=== PATIENT | male | born 1960 | race American Indian/Alaskan Native ===

== ENCOUNTER 2017-03-17 21:49 | Emergency (ER) | payer SELFPAY ==
[2017-03-17 23:37] LABS: Hemoglobin 14.4 gm/dl (11.8-15.2); Mean Corpuscular HGB Conc 33 % (32-34); Mean Corpuscular Hemoglobin 28 pg (28-32); Mean Corpuscular Volume 87 fl (84-94); Platelet Count 215 K/mm3 (140-440); Red Blood Count 5.08 M/mm3 (3.65-5.03); Red Cell Distribution Width 14.4 % (13.2-15.2); White Blood Count 8.5 K/mm3 (4.5-11.0)
[2017-03-17 23:42] LABS: Anion Gap 16 mmol/L; BUN/Creatinine Ratio 10; Blood Urea Nitrogen 10 mg/dL (9-20); Calcium 9.1 mg/dL (8.4-10.2); Carbon Dioxide 28 mmol/L (22-30); Chloride 98.2 mmol/L (98-107); Glucose 152 mg/dL (75-100); Potassium 4.1 mmol/L (3.6-5.0); Sodium 138 mmol/L (137-145)
[2017-03-18 00:08] LABS: Urine Drugs of Abuse Note Disclamer
[2017-03-18 00:41] LABS: Bilirubin,Urine NEG (Negative); Blood,Urine SM (Negative); Ketones,Urine NEG (Negative); Leukocyte Esterase,Urine MOD (Negative); Mucus,Urine FEW /HPF; Nitrite,Urine NEG (Negative); Protein,Urine <15 mg/dL mg/dL (Negative)
[2017-03-18 02:00] LABS: Basophils % (Manual) 0 % (0.0-1.8); Blastocytes % (Manual) 0 %
[2017-03-18 02:01] LABS: Diff Status Complete
--- NOTE | 2017-03-18 06:33 | Emergency Department Report ---
ED General Adult HPI - General Chief complaint: Medical Clearance Stated complaint: MEDICAL CLEARANCE Time Seen by Provider: 03/18/17 06:32 Source: patient, EMS (ems notes not available at time of chart dictation), RN notes reviewed Mode of arrival: Ambulatory Limitations: No Limitations - History of Present Illness Initial comments: This is a 56-year-old male who is previously unknown to this provider. He presents to the ER for medical clearance. Patient is using alcohol and crack. He wants medical clearance. He denies headache, neck pain, chest pain, abdominal pain, shortness of breath, testicular pain, irritative and obstructive urinary symptoms, he denies hallucinations, and he denies homicidality and suicidality. He was sent to the ER for medical clearance for low temperature and complaints of rapid heartbeat and chills. Last the patient about these aforementioned findings, he denies them. There is no documentation as far that the patient has been hypothermic, or having palpitations, and he does not have any grossly abnormal vital signs the ER. Severity scale (0 -10): 0 Improves with: none Worsens with: none Associated Symptoms: denies: confusion, chest pain, cough, diaphoresis, fever/ chills, headaches, loss of appetite, malaise, nausea/vomiting, rash, shortness of breath, syncope, weakness - Related Data Allergies Allergy/AdvReac Type Severity Reaction Status Date / Time No Known Allergies Allergy Unverified 03/17/17 22:15 ED Review of Systems ROS: Stated complaint: MEDICAL CLEARANCE Other details as noted in HPI Constitutional: denies: fever Eyes: denies: eye discharge ENT: denies: epistaxis Respiratory: denies: cough Cardiovascular: denies: chest pain Gastrointestinal: denies: abdominal pain Genitourinary: denies: dysuria, discharge, testicular pain Skin: denies: lesions Neurological: denies: weakness Psychiatric: denies: homicidal thoughts, suicidal thoughts ED Past Medical Hx - Past Medical History Previous Medical History?: Yes Hx Psychiatric Treatment: Yes (depression) - Social History Smoking Status: Current Every Day Smoker Substance Use Type: Alcohol, Cocaine ED Physical Exam - General Limitations: No Limitations General appearance: alert, in no apparent distress - Head Head exam: Present: atraumatic, normocephalic - Eye Eye exam: Present: normal appearance, PERRL, EOMI, other (visual acuity intact to finger counting, color perception, reading at a close distance). Absent: nystagmus - ENT ENT exam: Present: normal exam, normal orophraynx, mucous membranes moist, normal external ear exam - Neck Neck exam: Present: normal inspection, full ROM. Absent: tenderness, meningismus - Respiratory Respiratory exam: Present: normal lung sounds bilaterally. Absent: respiratory distress, chest wall tenderness - Cardiovascular Cardiovascular Exam: Present: regular rate, normal rhythm, normal heart sounds. Absent: bradycardia, tachycardia, irregular rhythm, systolic murmur, diastolic murmur, rubs, gallop - GI/Abdominal GI/Abdominal exam: Present: soft, normal bowel sounds. Absent: distended, tenderness, guarding, rebound, rigid, pulsatile mass - Rectal Rectal exam: Present: deferred - Extremities Exam Extremities exam: Present: normal inspection, full ROM, normal capillary refill. Absent: pedal edema, joint swelling, calf tenderness - Back Exam Back exam: Present: normal inspection, full ROM. Absent: tenderness, CVA tenderness (R), paraspinal tenderness, vertebral tenderness - Neurological Exam Neurological exam: Present: alert, oriented X3, normal gait, other (Extraocular movements intact. Tongue midline. No facial droop. Facial sensation intact to light touch in the V1, V2, V3 distribution bilaterally. 5 and 5 strength in 4 extremities.. Sensation is intact to light touch in 4 extremities.). Absent : motor sensory deficit - Psychiatric Psychiatric exam: Present: flat affect. Absent: homicidal ideation, suicidal ideation - Skin Skin exam: Present: warm, dry, intact, normal color. Absent: rash ED Course Vital Signs 03/17/17 03/18/17 03/18/17 22:19 03:00 03:15 Temperature 97.7 F Pulse Rate 76 80 80 Respiratory 20 19 16 Rate Blood Pressure 124/80 102/60 102/65 Blood Pressure [Right] O2 Sat by Pulse 97 Oximetry 03/18/17 03/18/17 03/18/17 03:30 03:45 04:00 Temperature Pulse Rate 79 81 76 Respiratory 14 15 14 Rate Blood Pressure 106/64 101/56 97/71 Blood Pressure [Right] O2 Sat by Pulse Oximetry 03/18/17 03/18/17 03/18/17 04:15 04:30 04:56 Temperature 98.3 F Pulse Rate 81 76 76 Respiratory 15 16 16 Rate Blood Pressure 103/62 110/75 Blood Pressure 116/74 [Right] O2 Sat by Pulse 96 Oximetry 03/18/17 03/18/17 03/18/17 05:01 06:17 07:01 Temperature Pulse Rate 67 70 73 Respiratory 15 14 15 Rate Blood Pressure 116/74 111/70 Blood Pressure 105/70 [Right] O2 Sat by Pulse 95 97 95 Oximetry 03/18/17 03/18/17 03/18/17 08:01 09:01 10:00 Temperature Pulse Rate 81 Respiratory 14 Rate Blood Pressure 100/62 98/71 111/70 Blood Pressure [Right] O2 Sat by Pulse 98 98 98 Oximetry 03/18/17 12:30 Temperature 97.7 F Pulse Rate 70 Respiratory 18 Rate Blood Pressure Blood Pressure 118/78 [Right] O2 Sat by Pulse 98 Oximetry - Reevaluation(s) Reevaluation #1: 03/18/17 08:02 Patient sleeping on a stretcher in no distress, awakes easily, and walks with a steady gait. Reevaluation #2: 03/18/17 08:25 Reassessment, patient no distress, remainder of laboratory studies unremarkable , he will be discharged. ED Medical Decision Making - Lab Data Result diagrams: 03/17/17 22:50 03/17/17 22:50 Vital Signs 03/17/17 03/18/17 03/18/17 22:19 03:00 03:15 Temperature 97.7 F Pulse Rate 76 80 80 Respiratory 20 19 16 Rate Blood Pressure 124/80 102/60 102/65 Blood Pressure [Right] O2 Sat by Pulse 97 Oximetry 03/18/17 03/18/17 03/18/17 03:30 03:45 04:00 Temperature Pulse Rate 79 81 76 Respiratory 14 15 14 Rate Blood Pressure 106/64 101/56 97/71 Blood Pressure [Right] O2 Sat by Pulse Oximetry 03/18/17 03/18/17 03/18/17 04:15 04:30 04:56 Temperature 98.3 F Pulse Rate 81 76 76 Respiratory 15 16 16 Rate Blood Pressure 103/62 110/75 Blood Pressure 116/74 [Right] O2 Sat by Pulse 96 Oximetry 03/18/17 03/18/17 05:01 06:17 Temperature Pulse Rate 67 70 Respiratory 15 14 Rate Blood Pressure 116/74 Blood Pressure 105/70 [Right] O2 Sat by Pulse 95 97 Oximetry Labs 03/17/17 03/17/17 03/17/17 22:50 22:50 22:50 WBC 8.5 RBC 5.08 H Hgb 14.4 Hct 44.0 MCV 87 MCH 28 MCHC 33 RDW 14.4 Plt Count 215 Baso % (Auto) [employer] Technician Add Manual Diff Complete Total Counted 100 Seg Neuts % (Manual) 67.0 Band Neutrophils % 1.0 Lymphocytes % (Manual) 27.0 Reactive Lymphs % (Man) 1.0 Monocytes % (Manual) 3.0 Eosinophils % (Manual) 1.0 Basophils % (Manual) 0 Metamyelocytes % 0 Myelocytes % 0 Promyelocytes % 0 Blast Cells % 0 Nucleated RBC % Not Reportable Seg Neutrophils # Man 5.7 Band Neutrophils # 0.1 Lymphocytes # (Manual) 2.3 Abs React Lymphs (Man) 0.1 Monocytes # (Manual) 0.3 Eosinophils # (Manual) 0.1 Basophils # (Manual) 0.0 Metamyelocytes # 0.0 Myelocytes # 0.0 Promyelocytes # 0.0 Blast Cells # 0.0 WBC Morphology Not Reportable Hypersegmented Neuts Not Reportable Hyposegmented Neuts Not Reportable Hypogranular Neuts Not Reportable Smudge Cells Not Reportable Toxic Granulation Not Reportable Toxic Vacuolation Not Reportable Dohle Bodies Not Reportable Pelger-Huet Anomaly Not Reportable Inés Rods Not Reportable Platelet Estimate Appears normal Clumped Platelets Not Reportable Plt Clumps, EDTA Not Reportable Large Platelets Not Reportable Giant Platelets Not Reportable Platelet Satelliting Not Reportable Plt Morphology Comment Not Reportable RBC Morphology Not Reportable Dimorphic RBCs Not Reportable Polychromasia Not Reportable Hypochromasia Not Reportable Poikilocytosis Not Reportable Anisocytosis Not Reportable Microcytosis Not Reportable Macrocytosis Not Reportable Spherocytes Not Reportable Pappenheimer Bodies Not Reportable Sickle Cells Not Reportable Target Cells Not Reportable Tear Drop Cells Not Reportable Ovalocytes Not Reportable Helmet Cells Not Reportable Ayala-Ward Bodies Not Reportable [place] Rings Not Reportable [place] Cells Not Reportable Bite Cells Not Reportable Crenated Cell Not Reportable Elliptocytes Not Reportable Acanthocytes (Spur) Not Reportable Rouleaux Not Reportable Hemoglobin C Crystals Not Reportable Schistocytes Not Reportable Malaria parasites Not Reportable Gumaro Bodies Not Reportable Hem Pathologist Commnt No Sodium 138 Potassium 4.1 Chloride 98.2 Carbon Dioxide 28 Anion Gap 16 BUN 10 Creatinine 1.0 Estimated GFR > 60 BUN/Creatinine Ratio 10 Glucose 152 H Calcium 9.1 Urine Color Urine Turbidity Urine pH Ur Specific [place] Urine Protein Urine Glucose (UA) Urine Ketones Urine Blood Urine Nitrite Urine Bilirubin Urine Urobilinogen Ur Leukocyte Esterase Urine WBC (Auto) Urine RBC (Auto) U Epithel Cells (Auto) Urine Mucus Urine Opiates Screen Urine Methadone Screen Ur Barbiturates Screen Ur Phencyclidine Scrn Ur Amphetamines Screen U Benzodiazepines Scrn Urine Cocaine Screen U Marijuana (THC) Screen Drugs of Abuse Note Plasma/Serum Alcohol < 0.01 03/18/17 03/18/17 00:02 00:02 WBC RBC Hgb Hct MCV MCH MCHC RDW Plt Count Baso % (Auto) Add Manual Diff Total Counted Seg Neuts % (Manual) Band Neutrophils % Lymphocytes % (Manual) Reactive Lymphs % (Man) Monocytes % (Manual) Eosinophils % (Manual) Basophils % (Manual) Metamyelocytes % Myelocytes % Promyelocytes % Blast Cells % Nucleated RBC % Seg Neutrophils # Man Band Neutrophils # Lymphocytes # (Manual) Abs React Lymphs (Man) Monocytes # (Manual) Eosinophils # (Manual) Basophils # (Manual) Metamyelocytes # Myelocytes # Promyelocytes # Blast Cells # WBC Morphology Hypersegmented Neuts Hyposegmented Neuts Hypogranular Neuts Smudge Cells Toxic Granulation Toxic Vacuolation Dohle Bodies Pelger-Huet Anomaly Inés Rods Platelet Estimate Clumped Platelets Plt Clumps, EDTA Large Platelets Giant Platelets Platelet Satelliting Plt Morphology Comment RBC Morphology Dimorphic RBCs Polychromasia Hypochromasia Poikilocytosis Anisocytosis Microcytosis Macrocytosis Spherocytes Pappenheimer Bodies Sickle Cells Target Cells Tear Drop Cells Ovalocytes Helmet Cells Ayala-Ward Bodies [place] Rings [place] Cells Bite Cells Crenated Cell Elliptocytes Acanthocytes (Spur) Rouleaux Hemoglobin C Crystals Schistocytes Malaria parasites Gumaro Bodies Hem Pathologist Commnt Sodium Potassium Chloride Carbon Dioxide Anion Gap BUN Creatinine Estimated GFR BUN/Creatinine Ratio Glucose Calcium Urine Color Yellow Urine Turbidity Clear Urine pH 5.0 Ur Specific [place] 1.013 Urine Protein <15 mg/dl Urine Glucose (UA) Neg Urine Ketones Neg Urine Blood Sm Urine Nitrite Neg Urine Bilirubin Neg Urine Urobilinogen 2.0 Ur Leukocyte Esterase Mod Urine WBC (Auto) 42.0 H Urine RBC (Auto) 5.0 U Epithel Cells (Auto) 5.0 Urine Mucus Few Urine Opiates Screen Presumptive negative Urine Methadone Screen Presumptive negative Ur Barbiturates Screen Presumptive negative Ur Phencyclidine Scrn Presumptive negative Ur Amphetamines Screen Presumptive negative U Benzodiazepines Scrn Presumptive negative Urine Cocaine Screen Presumptive positive U Marijuana (THC) Screen Presumptive negative Drugs of Abuse Note Disclamer Plasma/Serum Alcohol - EKG Data -: EKG Interpreted by Ar EKG shows normal: sinus rhythm - EKG Data When compared to previous EKG there are: previous EKG unavailable 03/18/17 07:56 Normal sinus, 73 bpm, normal axis, QTC prolonged, Q waves noted in the inferior leads, not having chest pain, not morphologically consistent with ST elevation myocardial infarction - Radiology Data Radiology results: report reviewed, image reviewed X-ray of the chest is negative for acute disease - Medical Decision Making Differential diagnosis, including not limited to: Polysubstance abuse, medical clearance for psychiatric placement general medical evaluation Assessment and plan: 56-year-old male with no complaints sent for medical clearance. He is afebrile with reassuring vital signs, clinically sober, walks with a steady gait, has an anion score of 0, and a GCS of 15. He is not homicidal or suicidal, and does not merit require a 1013. No documented episodes of hypothermia in the ER, EKG is unremarkable, urinalysis shows pyuria but with no symptoms or bacteriuria. Patient observed in the ER for hours without clinical decompensation, the patient is suitable for outpatient detox at this time. Critical care attestation.: If time is entered above; I have spent that time in minutes in the direct care of this critically ill patient, excluding procedure time. ED Disposition Clinical Impression: Medical clearance for psychiatric admission Disposition: [id number] TO HOME OR SELFCARE Is pt being admited?: No Does the pt Need Aspirin: No Condition: Good Additional Instructions: Follow-up with the primary care doctor within the next month. Avoid consumption of alcohol and crack cocaine, these drugs are bad for your health. There is no immediate medical contraindication to outpatient detox therapy at this time. Return to the ER right away with fevers, chills, chest pain, shortness of breath, confusion, intractable nausea or vomiting, inability to tolerate liquid feeds. Referrals: PRIMARY CARE, [Primary Care Provider] - 3-5 Days SONIA LOMELI MD [Staff Physician] - 3-[address] [facility] [Provider Group] - 3-5 Days
--- NOTE | 2017-03-18 07:31 | XRay Report ---
ROUTINE CHEST, TWO VIEWS: HISTORY: Chills, pneumonia, fever. The trachea, heart, mediastinal contour, lung wolfe and bony thorax are unremarkable. IMPRESSION: Unremarkable chest x-ray.
[2017-03-18 12:38] VITALS: BP 118/78
== END 2017-03-18 13:45 | disposition home or self-care (01) ==
LOC: ED 21:49
DX: Z00.8 Encounter for other general examination (principal); F17.200 Nicotine dependence, unspecified, uncomplicated; F14.10 Cocaine abuse, uncomplicated; F10.10 Alcohol abuse, uncomplicated; F32.9 Major depressive disorder, single episode, unspecified
CPT/HCPCS: 36415; 71020; 80048; 80307; 81001; 82550; 85007; 85025; 93005; 93010; 99284; G0480; 80320